=== PATIENT | female | born 1975 | race Caucasian/White ===

== ENCOUNTER 2017-06-07 17:18 | Emergency (ER) | payer OTHER ==
[~2017-06-07] VITALS: Ht 170.2 cm; Wt 120.1 kg
[~2017-06-07 17:18] MED LIST: ASMANEX TW200 MICRO1 IH; ATARAX,VISTARIL25 MG PO; ATARAX,VISTARIL50 MG PO; BUSPAR10 MG PO; CELEXA20 MG PO; FLEXERIL10 MG PO; MOBIC7.5 MG PO; MOTRIN600 MG PO; NORCO 5/3251 TABLET PO; PEPCID20 MG PO; PREDNISONE10 M1 PO; PREDNISONE20 MG PO; PROVENTIL HFA6.7 GM IH; VENTOLIN HFA18 GM IH; ZITHROMAX Z-PA250 MG PO; ZOFRAN4 MG PO
[2017-06-07] MEDS ORDERED: PERCOCET 5/31 TABLET PO (18:52)
[2017-06-07 19:42] VITALS: BP 136/92
== END 2017-06-07 19:43 | disposition home or self-care (01) ==
LOC: EME 17:18
PROC: 2W3RX1Z Immobilization of Left Lower Leg using Splint (ICD-10-PCS; principal; 2017-06-07)
DX: S82.892A Other fracture of left lower leg, initial encounter for closed fracture (principal); W01.0XXA Fall on same level from slipping, tripping and stumbling without subsequent striking against object, initial encounter; Y99.0 Civilian activity done for income or pay; J45.909 Unspecified asthma, uncomplicated; F17.200 Nicotine dependence, unspecified, uncomplicated
CPT/HCPCS: 73610; 99281; 99284; J3010